=== PATIENT | female | born 1960 | race Caucasian/White ===

== ENCOUNTER 2019-04-12 02:20 | Emergency (ER) | payer OTHER ==
[2019-04-12] MEDS: ACETAMINOPHEN 500 MG TAB PO (03:02)
== END 2019-04-12 09:40 | disposition home or self-care (01) ==
LOC: E/R 02:20
DX: S40.012A Contusion of left shoulder, initial encounter (principal); S16.1XXA Strain of muscle, fascia and tendon at neck level, initial encounter; S09.90XA Unspecified injury of head, initial encounter; W06.XXXA Fall from bed, initial encounter; Y92.9 Unspecified place or not applicable
CPT/HCPCS: 70450; 72125; 73030; 99284-25